=== PATIENT | female | born 1945 | race Caucasian/White ===

== ENCOUNTER 2016-09-09 10:04 | Emergency (ER) | payer OTHER, MEDICARE ==
[2016-09-09 10:17] VITALS: TEMP 99
[2016-09-09 11:07] LABS: % IMMATURE GRANULYOCYTES 0.2 % (0.0-1.1); ABSOLUTE IMMATURE GRANULOCYTES 0.02 10^3/uL (0.00-0.10); ADD DIFF? NO; ADD MORPH? NO; ADD SCAN? NO; ATYPICAL LYMPHOCYTE FLAG 20 (0-99); FRAGMENT RBC FLAG 0 (0-99); HEMATOCRIT 44.2 % (38.0-47.0); HEMOGLOBIN 15.3 g/dL (12.6-16.3); LEFT SHIFT FLG 0 (0-99); LIPEMIA HEMOLYSIS FLAG 90 (0-99); MEAN CELL HEMOGLOBIN 31.1 pg (27.9-34.1); MEAN CELL HEMOGLOBIN CONCENTR. 34.6 g/dL (32.4-36.7); MEAN CELL VOLUME 89.8 fL (81.5-99.8); MEAN PLATELET VOLUME 11.3 fL (8.7-11.7); PLATELET CLUMPS FLAG 0 (0-99); PLATELET COUNT 279 10^3/uL (150-400); RED BLOOD CELL COUNT 4.92 10^6/uL (4.18-5.33); RED CELL DISTRIBUTION WIDTH 12.2 % (11.5-15.2)
[2016-09-09 11:09] LABS: ANION GAP 10 mEq/L (8-16); CALCIUM 9.6 mg/dL (8.5-10.4); CARBON DIOXIDE 25 mEq/l (22-31); CHLORIDE 104 mEq/L (97-110); CREATININE 0.8 mg/dL (0.6-1.0); GLOMERULAR FILTRATION RATE > 60; GLUCOSE 108 mg/dL (70-100); POTASSIUM 3.9 mEq/L (3.5-5.2); SODIUM 139 mEq/L (134-144)
--- NOTE | 2016-09-09 11:10 | CPEKG ---
Heart Rate: 57 RR Interval: 1053 P-R Interval: 164 QRSD Interval: 74 QT Interval: 428 QTC Interval: 417 P [place]: 24 QRS [place]: 10 T Wave [place]: 45 EKG Severity - NORMAL ECG - EKG Impression: SINUS RHYTHM Electronically Signed By: Santiago Casiano 10-Sep-2016 11:05:49
--- NOTE | 2016-09-09 12:25 | CT ---
Noncontrast Head CT 1151 hours History: Vertigo and headache. Rule out intracranial hemorrhage. Technique: Standard noncontrast head CT protocol utilizing axial images was acquired through the lazaro varium. Images were reconstructed in multiple planes as well. Dose reduction techniques were utilized . Findings: The cerebral parenchyma has a normal attenuation throughout. There are no masses, intracran ial hemorrhage, subdural collections, or evidence of recent cerebral infarction. The bones are unrem arkable. The paranasal sinuses are clear. Impression: Normal head CT. These findings were discussed by telephone with Dr. Santiago Casiano at 1226 hrs.
--- NOTE | 2016-09-09 12:35 | UCPHY ---
H & P Patient Type: Established Chief Complaint Nursing Narrative: c/o N/D/Dizzyness on and off since. Tu Time Seen by Provider: 09/09/16 10:43 HPI/ROS: This patient has 4 day history of dizziness that she describes as vertiginous in nature. She explains that the symptoms worsen with movement. However the vertigo is intermittent. There are times when she has had no vertigo including all day Monday. She has intermittent episodes of diaphoresis associated with these episodes. She has never had this type of dizziness in her past. ROS: No fevers or chills. No fatigue. HEENT: She had URI symptoms for a week that resolved over the past 2 or 3 days consisting of nasal congestion. She reported no ear symptoms including no tinnitus currently but she reported having left-sided vascular tinnitus for the 1st 2 days of her symptoms-a throbbing sound in her left ear. That has since resolved. Neuro: She reports a headache that is mild in the middle of her head 2/10 in intensity achy in nature present for the past 48 hours. She states she rarely gets headaches. She notes no exacerbating or alleviating factors for her headache. She denies any visual changes. No focal numbness tingling or weakness. Pulmonary: No dyspnea cardiovascular: No heart palpitations. No lightheadedness. GI: Mild nausea at times but no vomiting 10 point ROS is otherwise negative. Source: Patient Exam Limitations: No limitations - Personal History Current Tetanus Diphtheria and Acellular Pertussis (TDAP): Yes - Medical/Surgical History PMH: Hypothyroid with a normal TSH in June Hx Asthma: No Hx Chronic Respiratory Disease: Yes Hx Diabetes: No Hx Cardiac Disease: No Hx Renal Disease: No Hx Cirrhosis: No Hx Alcoholism: No Hx HIV/AIDS: No Hx Splenectomy or Spleen Trauma: No Other PMH: Sarcoidosis 1971, 1996. rotator cuff repair, cholecystecomy, fundaplacation, trigger finger l, double knee replacement, fx l wrist - Family History Significant Family History: No pertinent family hx - Social History Smoking Status: Never smoked Alcohol Use: Rarely Drug Use: None - Physical Exam Exam: Physical exam: Vital signs are normal General: Patient is in no acute distress. HEENT: Ears: Clear bilaterally with no hemotympanum. Oropharynx: No dental trauma or malocclusion. No intraoral lacerations. Neck: Trachea is midline with no stridor. The patient has no midline neck tenderness and retains a full range of motion without increase in pain. Lungs: Clear to auscultation bilaterally Cardiac: Regular rate and rhythm no murmur gallop or rub. Abdomen: Soft nontender no organomegaly Back: Nontender Extremities: Atraumatic Neuro: GCS of 15. Cranial nerves II through XII intact. Cerebellar exam is normal as judged by symmetric rapid hand movements bilaterally. No pronator drift. No sensory or motor deficits are appreciated. Initial differential diagnosis: Benign positional vertigo, tension headache, intracranial lesion, stroke, intracranial hemorrhage, cardiac dysrhythmia Constitutional: Initial Vital Signs Temperature (C) 37.2 C 09/09/16 10:14 Heart Rate 73 09/09/16 10:14 Respiratory Rate 18 09/09/16 10:14 Blood Pressure 157/81 H 09/09/16 10:14 O2 Sat (%) 97 09/09/16 10:14 O2 Delivery Mode Room Air Allergies/Adverse Reactions: amoxicillin [Amoxicillin] Allergy (Verified 11/26/13 12:39) hydrocodone Allergy (Verified 11/26/13 12:39) lansoprazole [From Prevacid] Allergy (Verified 11/26/13 12:39) naproxen sodium [From Aleve] Allergy (Verified 11/26/13 12:39) oxycodone [Oxycodone] Allergy (Verified 11/26/13 12:39) Home Medications: Medication Instructions Recorded Aspirin 81mg (OTC) 08/06/13 Levothyroxine 08/06/13 Multivitamins 08/06/13 Paxil 08/06/13 Albuterol [Proventil Inhaler HFA 1 - 2 puffs IH Q4 #1 mdi 11/26/13 (*)] Fluticasone Nasal [Flonase Nasal 2 sprays NASAL DAILY #1 mdi 09/09/16 Sh[facility]ler (RX)] Medical Decision Making - Diagnostics EKG Interpretation: 12 lead EKG performed at 11:08 a.m. indication dizziness rule out dysrhythmia or ischemia Sinus rhythm at 57 Intervals: Normal throughout ST segments: Normal throughout Overall assessment: Normal EKG. For complete read please refer to trace master. Imaging: CT brain: Normal. This film was read by a radiologist and I also reviewed the film. ED Course/Re-evaluation: Discussion: The patient appears well here. She has a cluster symptoms that warranted further evaluation to rule out central vertigo and after further workup there is no concerning findings to suggest a central vertigo. She does have a history of a transient vascular tinnitus that has resolved so I referred her to ENT for further evaluation if her symptoms do not resolve over the next 2 days. No evidence of cardiac pathology. Her CBC and chemistries were normal - Data Points Laboratory Results: Laboratory Results 09/09/16 10:10 09/09/16 10:10 Departure - Departure Disposition: Home, Routine, Self-Care Clinical Impression: Benign positional vertigo Condition: Fair Instructions: Benign Paroxysmal Positional Vertigo (ED), Acute Headache (ED) Additional Instructions: Diagnoses: 1. Benign positional vertigo 2. Acute headache Plan: Flonase steroid nasal spray Meclizine motion sickness medicine [id number] mg 3 times a day as needed for vertigo. Call Dr. Reed-ear nose throat physician for further evaluation if her symptoms are not resolving over the next few days with the treatment plan. Go to the emergency department for any significant worsening despite the treatment plan. Referrals: Unique Oquendo [Primary Care Provider] - As per Instructions Saurabh Reed MD [Medical Doctor] - As per Instructions Prescriptions: Fluticasone Nasal [Flonase Nasal [place]ler (RX)] 2 sprays NASAL DAILY #1 mdi - PQRS PQRS Measurement: 134: Depression screening and followup, PRIME MD-PHQ2 (12 years and older) Over the last 2 weeks, how often have you been bothered by any of the following problems? 1. Feeling down, depressed, or hopeless? 2. Little interest or pleasure in doing things? Patient answered yes to at least 1, referred to PCP for further evaluation. 130: Documentation of medications. Reviewed all patient medications, doses, route and frequency. 226: Do you smoke? [ [No.] 47: 65 and older: Advanced care planning. Her cousin, Radha Greer 51: 18 years old and older with diagnosis of COPD, spirometry performance. RICH 52: 18 years old and older with COPD and symptoms of COPD or FEV1<60% predicted prescribed a B Agonist. RICH
[2016-09-09 12:39] VITALS: BP 158/60; PULSE 60; RESP 14; O2SAT 98
== END 2016-09-09 12:44 | disposition home or self-care (01) ==
LOC: CED 10:04
DX: H81.10 Benign paroxysmal vertigo, unspecified ear (principal)
CPT/HCPCS: 70450; 93005; G0463; 80048-PO; 85025-PO; 93010-PO; 99215-PO